=== PATIENT | female | born 1980 | race Caucasian/White ===

== ENCOUNTER 2017-02-06 17:35 | Emergency (ER) | payer OTHER ==
[~2017-02-06] VITALS: Ht 160 cm; Wt 59.4 kg
[2017-02-06 18:02] VITALS: BP 164/117
--- NOTE | 2017-02-06 18:23 | NUR ---
Patient to bed 08.
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
[2017-02-06] MEDS ORDERED: PENICILLIN G BENZATHINE L-A 2.4 MU/4 ML SYR IM ONE (18:25)
--- NOTE | 2017-02-06 18:26 | NUR ---
Dr. Oconnell evaluating patient at bedside.
[2017-02-06 18:55] VITALS: BP 162/105
--- NOTE | 2017-02-06 18:55 | NUR ---
Patient discharged with BP 162/105. PT STATES " I ALWAYS HAVE REALLY HIGH BLOOD PRESSURE. I KNOW I SHOULD TAKE MY MEDICATION"; DENIES HEADACHE, DIZZINESS, OR OTHER S/S OF HTN AT THIS TIME. ER MD DR. NICHOLE AWARE. Written and verbal after care instructions given and explained. Patient verbalized understanding. Ambulatory with steady gait. All questions addressed prior to discharge. Advised to follow up with PMD.
== END 2017-02-06 18:55 | disposition home or self-care (01) ==
LOC: MED 17:35
DX: A53.9 Syphilis, unspecified (principal); I10 Essential (primary) hypertension; F17.210 Nicotine dependence, cigarettes, uncomplicated
CPT/HCPCS: 36415; 86592; 96372; 99283; J0561

== ENCOUNTER 2017-02-13 16:49 | Emergency (ER) | payer OTHER ==
[~2017-02-13] VITALS: Ht 157.5 cm; Wt 59.0 kg
[2017-02-13 16:53] VITALS: BP 149/111
--- NOTE | 2017-02-13 19:55 | NUR ---
PATIENT LEFT WITHOUT BEING SEEN BY DR. FAJARDO. NO FURTHER CARE PROVIDED FOR PATIENT.
== END 2017-02-13 19:55 | disposition left against medical advice (07) ==
LOC: MED 16:49
DX: Z53.21 Procedure and treatment not carried out due to patient leaving prior to being seen by health care provider (principal)

== ENCOUNTER 2017-02-21 06:05 | Emergency (ER) | payer OTHER ==
[~2017-02-21] VITALS: Ht 157.5 cm; Wt 78.5 kg
[2017-02-21 06:11] VITALS: BP 159/129
--- NOTE | 2017-02-21 06:24 | NUR ---
36Y F PRESENTED IN ER C/O OF STD WHICH SHE WAS DIAGNOSE A MONTH AGO. V/S TAKEN AND ER MD AWARE OF BP READINGS. PT STATES HAS A HX OF HNT BUT NOT COMPLAINT WITH MEDS. NO DITRESS NOTED AT THE MOMENT. ER MD AWARE OF PT'S CONDITION.
--- NOTE | 2017-02-21 06:25 | NUR ---
Note ninfa in EDM - 02/21/17 at 0643 by AMITA 36Y F PRESENTED IN ER C/O OF STD WHICH SHE WAS DIAGNOSE A MONTH AGO. V/S TAKEN AND WNL. NO DITRESS NOTED. ERMD AWARE OF PT'S CONDITION.
--- NOTE | 2017-02-21 06:44 | NUR ---
Patient being evaluated by physician at bedside.
--- NOTE | 2017-02-21 07:10 | NUR ---
BP 186/126, DR PERERA NOTIFIED BY PRIMARY NURSE JACKIE RE:BP, ERMD OFFERED BP MEDS BUT PT REFUSES. NO C/O OF DISCOMFORT. PT STATED SHE HAS PRESCRIBED MEDS IN THE CAR FOR BP AND WILL JUST HER OWN MEDS.
[2017-02-21 07:15] VITALS: BP 186/126
--- NOTE | 2017-02-21 07:15 | NUR ---
Patient discharged with v/s stable. Written and verbal after care instructions given and explained. Patient verbalized understanding. Ambulatory with steady gait. All questions addressed prior to discharge. Advised to follow up with PMD.
== END 2017-02-21 07:15 | disposition home or self-care (01) ==
LOC: MED 06:05
DX: Z23 Encounter for immunization (principal); I10 Essential (primary) hypertension; Z86.19 Personal history of other infectious and parasitic diseases

== ENCOUNTER 2018-04-18 01:04 | Emergency (ER) | payer MEDICAID, OTHER ==
[~2018-04-18] VITALS: Ht 157.5 cm; Wt 58.2 kg
[2018-04-18 01:11] VITALS: BP 151/111
--- NOTE | 2018-04-18 01:12 | NUR ---
PT STATES NEEDING RX REFILL D/T PRIMARY PCP NOT AVAILABLE. PT DENIES N/V/D; SKIN IS INTACT, PINK/WARM/DRY; AAOX4, PERRL, WITH EVEN AND STEADY GAIT; LUNGS CLEAR BL, BREATHING UNLABORED; HR EVEN AND REGULAR, BL PERIPHERAL PULSES PRESENT; BS ACTIVE X4, NO TENDERNESS TO PALPATION, NO HEPATOSPLENOMEGALLY PALPATED, RESONANT TO PERCUSSION; PT DENIES ANY FEVER, CP, SOB, OR COUGH AT THIS TIME; PT STATES 0/10 PAIN AT THIS TIME; VSS; PATIENT POSITIONED FOR COMFORT; HOB ELEVATED; BEDRAILS UP X2; BED DOWN. CONTINUE TO MONITOR.
--- NOTE | 2018-04-18 01:12 | NUR ---
PT TAKEN TO BED 6
--- NOTE | 2018-04-18 01:43 | NUR ---
Dr. Rosario evaluating patient at bedside.
[2018-04-18] MEDS ORDERED: cloNIDine 0.1 MG TAB PO ONE (01:50)
[2018-04-18 02:02] VITALS: BP 151/111
--- NOTE | 2018-04-18 02:02 | NUR ---
Patient discharged with v/s stable. Written and verbal after care instructions given and explained. Patient alert, oriented and verbalized understanding of instructions. Ambulatory with steady gait. All questions addressed prior to discharge. ID band removed. Patient advised to follow up with PMD. Rx of Clonidine given. Patient educated on indication of medication including possible reaction and side effects. Opportunity to ask questions provided and answered.
== END 2018-04-18 02:02 | disposition home or self-care (01) ==
LOC: MED 01:04
DX: I10 Essential (primary) hypertension (principal); F17.210 Nicotine dependence, cigarettes, uncomplicated; Z76.0 Encounter for issue of repeat prescription
CPT/HCPCS: 99283

== ENCOUNTER 2020-01-30 03:29 | Emergency (ER) | payer MEDICAID ==
[~2020-01-30] VITALS: Ht 157.5 cm; Wt 64.0 kg
[2020-01-30 03:38] VITALS: BP 175/115
--- NOTE | 2020-01-30 03:39 | NUR ---
PT AMBULATED TO BED 7 WITH STEADY GAIT.
--- NOTE | 2020-01-30 03:45 | NUR ---
PT STATES SHE RAN OUT OF HER MEDICATION FOR BLOOD PRESSURE THREE DAYS AGO AND HAS BEEN HYPERTENSIVE. BP 178/115 ON ASSESSMENT. STATES SHE HAS BEEN HAVING INTERMITTENT LIGHTHEADED AND DIZZINESS. DENIES ARGUELLO AND CP. RR EVEN AND UNLABORED. REQUESTING MEDICATION REFILL.
--- NOTE | 2020-01-30 03:46 | NUR ---
Dr. Lund examining patient.
[2020-01-30] MEDS ORDERED: cloNIDine 0.1 MG TAB PO ONE (04:05)
--- NOTE | 2020-01-30 04:08 | NUR ---
Patient discharged with v/s stable. Written and verbal after care instructions given and explained. Patient alert, oriented and verbalized understanding of instructions. Ambulatory with steady gait. All questions addressed prior to discharge. ID band removed. Patient advised to follow up with PMD. Rx of CLONIDINE given. Patient educated on indication of medication including possible reaction and side effects. Opportunity to ask questions provided and answered.
[2020-01-30 04:11] VITALS: BP 178/115
== END 2020-01-30 04:08 | disposition home or self-care (01) ==
LOC: MED 03:29
DX: I10 Essential (primary) hypertension (principal); Z76.0 Encounter for issue of repeat prescription
CPT/HCPCS: 99283

== ENCOUNTER 2020-05-28 06:51 | Emergency (ER) | payer MEDICAID ==
[~2020-05-28] VITALS: Ht 157.5 cm; Wt 59.0 kg
[2020-05-28 07:00] VITALS: BP 175/99
--- NOTE | 2020-05-28 07:09 | NUR ---
PT AMBULATED TO BED 7 WITH STEADY GAIT
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
--- NOTE | 2020-05-28 07:27 | NUR ---
Dr. Lund is evaluating the patient at bedside.
[2020-05-28] MEDS ORDERED: HYDROcodone/APAP 5/325 MG 1 TAB TAB PO ONE (07:35)
[2020-05-28] MEDS ORDERED: AZITHROMYCIN 250 MG TAB PO ONE (07:55)
[2020-05-28] MEDS ORDERED: cefTRIAXone 250 MG in LIDOCAINE MPF 1% 0.9 ML IM ONE (07:55)
[2020-05-28] MEDS ORDERED: LIDOCAINE MPF 1% 5 ML ONE (08:00)
[2020-05-28] MEDS ORDERED: cefTRIAXone 250 MG VIAL ONE (08:00)
[2020-05-28 08:14] VITALS: BP 145/89
[2020-05-30 06:07] LABS: CHLAMYDIA TRACHOMATIS AMP DNA Negative (Negative)
== END 2020-05-28 08:14 | disposition home or self-care (01) ==
LOC: MED 06:51
DX: R21 Rash and other nonspecific skin eruption (principal); I10 Essential (primary) hypertension; Z86.19 Personal history of other infectious and parasitic diseases; Z98.890 Other specified postprocedural states
CPT/HCPCS: 36415; 81002; 81025; 96372; 99283; J0696; J2001; 87491

== ENCOUNTER 2020-05-29 12:26 | Emergency (ER) | payer MEDICAID ==
[~2020-05-29] VITALS: Ht 157.5 cm; Wt 59.0 kg
[2020-05-29 12:51] VITALS: BP 137/83
--- NOTE | 2020-05-29 13:28 | NUR ---
AMBULATED TO BED 7
--- NOTE | 2020-05-29 14:05 | NUR ---
39 Y/O FEMALE FROM HOME STATES "I THINK I HAVE A TAMPON STUCK INSIDE ME FOR THE LAST 3 WKS". PT STATES "ODOR" COMING FROM [place] FOR UNKNOWN AMOUNT OF TIME. PT WAS SEEN AT [facility] YESTERDAY FOR ABRASIONS AND WAS GIVEN ROCEPHIN IM FOR POSSIBLE STD. AWAKE AND ALERT. RR EVEN AND UNLABORED. VSS
--- NOTE | 2020-05-29 14:06 | NUR ---
Female Service Engineer accompanied FRANKLIN NELSON female patient for Pelvic Exam.
--- NOTE | 2020-05-29 14:08 | NUR ---
WET MOUNT COLLECTED VAGINALLY FROM PT
[2020-05-29 14:58] LABS: BILIRUBIN,URINE NEGATIVE (NEGATIVE); BLOOD, URINE NEGATIVE (NEGATIVE); COLOR,URINE YELLOW (YELLOW); LEUKOCYTE ESTERASE ,URINE TRACE (NEGATIVE); NITRITE, URINE NEGATIVE (NEGATIVE); PH,URINE 5.5 (5.0-9.0); UGLUCOSE NEGATIVE (NEGATIVE)
[2020-05-29 15:07] LABS: APPEARANCE,URINE HAZY (CLEAR)
[2020-05-29 15:18] LABS: RBC,URINE NONE SEEN /HPF (0-5); WBC,URINE 0-5 /HPF (0-5)
[2020-05-29 15:37] VITALS: BP 129/81
--- NOTE | 2020-05-29 15:38 | NUR ---
Patient discharged with v/s stable. Written and verbal after care instructions given and explained. Patient alert, oriented and verbalized understanding of instructions. Ambulatory with steady gait. All questions addressed prior to discharge. ID band removed. Patient advised to follow up with PMD. Rx of METRONIDAZOLE 500MG given. Patient educated on indication of medication including possible reaction and side effects. Opportunity to ask questions provided and answered.
[2020-05-31 06:25] LABS: CHLAMYDIA TRACHOMATIS AMP DNA Negative (Negative)
== END 2020-05-29 15:38 | disposition home or self-care (01) ==
LOC: MED 12:26
DX: I10 Essential (primary) hypertension (principal); F12.90 Cannabis use, unspecified, uncomplicated; F17.210 Nicotine dependence, cigarettes, uncomplicated; Z97.5 Presence of (intrauterine) contraceptive device; Z11.3 Encounter for screening for infections with a predominantly sexual mode of transmission; Z86.73 Personal history of transient ischemic attack (TIA), and cerebral infarction without residual deficits
CPT/HCPCS: 36415; 81001; 81025; 87210; 87491; 99283

== ENCOUNTER 2020-06-01 01:10 | Emergency (ER) | payer MEDICAID ==
[~2020-06-01] VITALS: Ht 157.5 cm; Wt 68.0 kg
[2020-06-01 01:16] VITALS: BP 188/125
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
--- NOTE | 2020-06-01 01:39 | NUR ---
Dr. Lund examining patient.
--- NOTE | 2020-06-01 01:50 | NUR ---
NO NURSING CARE PROVIDED
--- NOTE | 2020-06-01 01:54 | NUR ---
Patient discharged with v/s stable. Written and verbal after care instructions given and explained. Patient alert, oriented and verbalized understanding of instructions. Ambulatory with steady gait. All questions addressed prior to discharge. ID band removed. Patient advised to follow up with PMD. Rx of NORCO, NARCAN, MIRALAX, MINERAL OIL given. Patient educated on indication of medication including possible reaction and side effects. Opportunity to ask questions provided and answered.
== END 2020-06-01 01:54 | disposition home or self-care (01) ==
LOC: MED 01:10
DX: S70.211A Abrasion, right hip, initial encounter (principal); S70.311A Abrasion, right thigh, initial encounter; S40.211A Abrasion of right shoulder, initial encounter; Y93.89 Activity, other specified; Y92.89 Other specified places as the place of occurrence of the external cause; Y99.8 Other external cause status; I10 Essential (primary) hypertension; Z86.73 Personal history of transient ischemic attack (TIA), and cerebral infarction without residual deficits
CPT/HCPCS: 81002; 81025; 99283

== ENCOUNTER 2021-04-23 01:04 | Emergency (ER) | payer MEDICAID ==
[~2021-04-23] VITALS: Ht 157.5 cm; Wt 59.0 kg
[2021-04-23 01:10] VITALS: BP 200/119
--- NOTE | 2021-04-23 01:10 | NUR ---
40/F C/O HEADACHE 08/03 RADIATING TO SHOULDERS. PT STATES "I THINK IM HAVING AN ANEURYSM". PT ALSO COMPLAINS OF NAUSEA. DENIES ANY VOMITING. TRAUMA, DIZZINESS, CHEST PAIN, FEVER, CHILLS. PT AAOX4, AMBULATORY. PT HOOKED TO MONITORS AND CHANGED TO GOWN. PMH: BRAIN ANEURYSM (APRIL 2020), HTN NKA
[2021-04-23] MEDS ORDERED: ONDANSETRON 4 MG/2 ML VIAL IVP ONE (01:15)
[2021-04-23] MEDS ORDERED: MORPHINE SULFATE 4 MG/ML SYR IVP ONE (01:15)
[2021-04-23] MEDS ORDERED: hydrALAZINE 20 MG/ML VIAL IVP ONE (01:15)
--- NOTE | 2021-04-23 01:18 | NUR ---
PT TAKEN TO BED 5
--- NOTE | 2021-04-23 01:21 | NUR ---
Dr. Huerta examining patient.
[2021-04-23 01:41] LABS: BASOPHILS # (AUTO) 0.1 K/uL (0.00-0.22); BASOPHILS % (AUTO) 0.8 % (0.0-2.0); EOSINOPHILS # (AUTO) 0.2 K/uL (0-0.4); EOSINOPHILS % (AUTO) 2.6 % (0.0-4.0); HEMATOCRIT 42.7 % (36-48); HEMOGLOBIN 14.4 g/dL (12.0-16.0); LYMPHOCYTES # (AUTO) 1.9 K/uL (2.5-16.5); LYMPHOCYTES % (AUTO) 27.7 % (20.5-51.1); MEAN CORPUSCULAR HEMOGLOBIN 31 pg (27-31); MEAN CORPUSCULAR HGB CONC 34 g/dL (33-37); MONOCYTES # (AUTO) 0.5 K/uL (0.8-1.0); MONOCYTES % (AUTO) 7.9 % (1.7-9.3); NEUTROPHILS # (AUTO) 4.2 K/uL (1.8-7.7); PLATELET COUNT (AUTO) 321 K/uL (140-450); RED BLOOD CELL COUNT(AUTO) 4.59 MIL/uL (4.20-5.40); RED CELL DISTRIBUTION WIDTH 13.2 % (11.6-13.7); WHITE BLOOD COUNT (AUTO) 6.9 K/uL (4.8-10.8)
[2021-04-23 02:03] LABS: ANION GAP 8.3 (8-16); CARBON DIOXIDE 27.3 mmol/L (21-32); POTASSIUM 3.6 mmol/L (3.5-5.1)
[2021-04-23 02:04] LABS: ALBUMIN 3.8 g/dL (3.4-5.0); CREATININE 0.7 mg/dL (0.6-1.3); TOTAL BILIRUBIN 0.3 mg/dL (0.0-1.0)
--- NOTE | 2021-04-23 02:56 | NUR ---
PT TAKEN TO CT
--- NOTE | 2021-04-23 03:15 | NUR ---
PT RETURN FROM CT
--- NOTE | 2021-04-23 04:59 | NUR ---
PT ASLEEP. VSS. VISIBLE CHEST RISE AND FALL NOTED. NO S/SX OF DISTRESS NOTED. PT KEPT COMFORTABLE. SAFETY MEASURES IN PLACE. WILL CONTINUE TO MONITOR.
--- NOTE | 2021-04-23 05:19 | NUR ---
CALL PT'S FRIEND PAM WHEN SHE IS READY FOR D/C AT [phone]
[2021-04-23 06:42] VITALS: BP 128/76
== END 2021-04-23 06:42 | disposition home or self-care (01) ==
LOC: MED 01:04
DX: R51.9 Headache, unspecified (principal); I16.0 Hypertensive urgency; Z86.73 Personal history of transient ischemic attack (TIA), and cerebral infarction without residual deficits
CPT/HCPCS: 36415; 70450; 70496; 70498; 80053; 84484; 85025; 93005; 96374; 96375; 99285; J0360; J2270; J2405; Q9967

== ENCOUNTER 2021-10-25 07:48 | Emergency (ER) | payer MEDICAID ==
[~2021-10-25] VITALS: Ht 157.5 cm; Wt 61.2 kg
[2021-10-25 08:01] VITALS: BP 186/117
--- NOTE | 2021-10-25 08:03 | NUR ---
PT TAKEN TO RAÚL Rae
[2021-10-25] MEDS ORDERED: ACETAMINOPHEN 325 MG TAB PO ONE ×2 (08:05→08:15)
[2021-10-25] MEDS ORDERED: CLONIDINE HYDROCHLORIDE 0.1 MG TAB PO ONE (08:05)
[2021-10-25] MEDS ORDERED: amLODIPine 5 MG TAB PO ONE (08:05)
--- NOTE | 2021-10-25 08:06 | NUR ---
DR. CUMMINGS WITH PT IN C.
--- NOTE | 2021-10-25 08:08 | NUR ---
41 Y/O FEMALE HERE FOR MED REFILL FOR BP MEDICATIONS. PT STATE SHE WAS UNABLE TO GET PCP APPT FOR REFILL. PT STATES HEADACHE /, DENIES N/V, DENIES FEVER/CHILLS. PMH: HTN, BRAIN ANEURISM, CVA NKA RX: CLONIDIN 0.1MG BID AND AMLODIPINE 5MG DAILY
[2021-10-25] MEDS ORDERED: CLON0.1T15 PO (08:10)
[2021-10-25] MEDS ORDERED: AMLO-271 PO (08:10)
[2021-10-25 08:31] VITALS: BP 178/114
--- NOTE | 2021-10-25 08:34 | NUR ---
Patient discharged with v/s stable. Written and verbal after care instructions given and explained. Patient alert, oriented and verbalized understanding of instructions. Ambulatory with steady gait. All questions addressed prior to discharge. ID band removed. Patient advised to follow up with PMD. Rx of CLONIDINE HCL given. Patient educated on indication of medication including possible reaction and side effects. Opportunity to ask questions provided and answered.
== END 2021-10-25 08:34 | disposition home or self-care (01) ==
LOC: MED 07:48
DX: R51.9 Headache, unspecified (principal); I10 Essential (primary) hypertension; Z76.0 Encounter for issue of repeat prescription; Z79.899 Other long term (current) drug therapy; Z86.73 Personal history of transient ischemic attack (TIA), and cerebral infarction without residual deficits
CPT/HCPCS: 99284